=== PATIENT | female | born 1980 | race Caucasian/White ===

== ENCOUNTER 2017-06-11 22:25 | Emergency (ER) | payer BC, OTHER ==
[2017-06-11 23:14] LABS: ACETAMINOPHEN < 2 ug/mL (10-30)
--- NOTE | 2017-06-15 12:01 | ER ---
DATE SEEN: 06/11/2017 TIME SEEN: The patient was seen at 2250 hours. 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 Today, she broke up in her relationship. This is the seventh breakup and this was particularly difficult. She had been in a "crappy relationship" before this last year and got out of it and now she had been in a different relationship, and she was told by the jessica that he was "moving on" and she felt rejected. She wrote and texted a friend that she "thought about slitting her wrist in the bathtub", but she did not. She was met by the police at the door and was transferred to the hospital for further evaluation. The patient does not feel suicidal, but she said she was so depressed this evening because of the breakup and now realizes that maybe he was not for her. At least at this point, she has the support of family, is strengthen by her parents. She is not suicidal. She does not feel helpless and hopeless, nor lost interest. Tonight, she felt rejected. She denies feeling guilty. Energy is great. Her concentration is poor after this. Anxiety was extensive. No psychomotor retardation. There is no suicidal ideation. FAMILY HISTORY: Negative for depression, positive for hypertension. The patient lost 100 pounds this last year and she is "still working on it". She has intermittent cold sores. She has valacyclovir for this. Last week she used valacyclovir on a herpetic sore on the right tragus. Stress can do that. Now, she is in stressful time in her life because this relationship has ended. SOCIAL HISTORY: Alcohol negative. Smoking negative. Street drugs negative. REVIEW OF SYSTEMS: Negative except for noted above. PHYSICAL EXAMINATION: VITAL SIGNS: Blood pressure 137/91, heart rate 104, respirations 16, oxygen saturation 99%, and temperature 36.6 degrees centigrade. GENERAL: Alert, pleasant woman, who is able to smile and talk very forthright. She is open about her feelings and her sense of rejection, and also knows that "she can move on", but tonight was difficult for her. She thought perhaps this was a relationship that might go some place. PHYSICAL EXAM: HEENT: PERRLA intact. Pharynx without abnormality. Eyes prominent. EOMs normal. Hearing is appropriate. No thyromegaly or masses in the neck. LUNGS: Clear without rales, rhonchi, or wheezes. HEART: S1 and S2. No murmur. No irregular rate and rhythm. ABDOMEN: Soft. No hepatosplenomegaly, guarding, or abdominal discomfort. Non-pigmented striae abdomen. No CVA percussion tenderness. PELVIC: Not performed. EXTREMITIES: Lower extremities without tenderness. No pedal edema. NEUROLOGIC: Deep tendon reflexes in upper and lower extremities. Normoactive. Cranial nerves 2 through 12 intact. Gait intact. Strength intact. Romberg negative and no pronator drift. ASSESSMENT: After a long discussion, it is apparent that the patient has great relationship with her psych counselor, Adelina Sherman. She had stopped seeing her 2 months ago as her relationships "were doing well" and she thought she was "getting along well until what happened this evening". The patient is not suicidal, but was very depressed this evening because the relationship ended. PLAN: 1. The patient has friends and family who are supportive. 2. Follow up with Adelina Sherman tomorrow. 3. No medicine prescribed. DIAGNOSES: 1. Obesity with 100-pound weight loss this year. 2. Depression and stress secondary to loss. 3. Mild hypokalemia at 3.3 potassium. Etiology indeterminate. She has good renal status. Plan to use [id number] potassium tablets, two tablets a day. Follow up in a week to have her potassium checked. 4. Leukocytosis with trace elevated differential, PMNs. Etiology indeterminate. Trace elevation of liver enzymes. The etiology for this is indeterminate. At this point, she is not losing weight. She is stable. / [id number] AMAYA/FABRIZIOL
== END 2017-06-12 00:05 | disposition home or self-care (01) ==
LOC: FB.ED 22:25
DX: F32.9 Major depressive disorder, single episode, unspecified (principal); D72.829 Elevated white blood cell count, unspecified; E66.9 Obesity, unspecified; E87.6 Hypokalemia; Z68.27 Body mass index [BMI] 27.0-27.9, adult
CPT/HCPCS: 36415; 80053; 80305; 81001; 81025; 84443; 85025; 99283; G0480